=== PATIENT | male | born 1950 | race Caucasian/White ===

== ENCOUNTER 2017-05-30 09:26 | Inpatient (IN) | payer OTHER ==
[2017-05-30 09:30] VITALS: BMI 30.4
[2017-05-30] MEDS ORDERED: MORPHINE SULFATE INJ 4 MG ONE (10:01)
[2017-05-30] MEDS ORDERED: MORPHINE SULFATE INJ 4 MG IVP ONE (10:01)
--- NOTE | 2017-05-30 10:02 | RAD ---
HISTORY: Chest pain Study: Chest one view Comparison: None Findings: The trachea is midline. The cardiac silhouette is enlarged. No congestive heart failure is noted.. The lungs are clear without focal infiltrate or effusion. The bony thorax is unremarkable. IMPRESSION: 1. Mild cardiomegaly without congestive heart failure 2. Lungs clear Reported By:
--- NOTE | 2017-05-30 10:09 | DR.CP ---
HPI - Time Seen Time seen: 10:05 - PCP Primary Care Physician: dontrell - HPI Comment HPI Comment: GETTING WORSE. NO FEVER. HISTORY LIVER CIRRHOSIS. - Complaint Chief Complaint Doctor Comments: COUGH, CHEST PAIN, ABDOMINAL PAIN, SOB AND DIZZINESS SINCE YESTERDAY. Chief Complaint:: Patient stated "I started coughing yesterday and this morning I began to get dizzy and now my chest is killing me on the left side down my arm." Patient states he almost fell out his truck this morning from being dizzy - Reviewed Nurses Notes Review: Yes - Source History Provided: Patient - Mode of Arrival Mode of Arrival: Ambulatory - Timing Onset of Chief Complaint: 05/30/17 Came on: Suddenly Pain: Present Now - Duration Duration: Constant Duration: Hours - Location Location of Chest Pain: Chest Chest Pain Radiation Location: Left Arm, Left Shoulder - Context Onset: With light exertion Cardiac Risk Factors: None PE Risk Factors: None History of: None Prehospital Care: None - Quality Quality: Pressure like, Heavy - Severity Severity: Moderate - Modifying Factors Worsens: Nothing Impoves: Nothing - Associated Signs and Symptoms Associated Signs and Symptoms: Shortness of Breath, Nausea/Vomiting PMH - PMH Past Medical History: Yes Past Medical History: Diabetes, Hypertension, Liver Disease Past Surgical History: Yes Surgical History: Cholecystectomy - Family History History of Family Medical Conditions: Yes Family Medical History: Diabetes Mellitus, Cancer - Social History Does patient currently use any type of tobacco product: No Have you used tobacco products in the last 12 months: No Type of Tobacco Use: None Does any household member use tobacco: No Alcohol Use: DAILY Lives With: Alone Lives Where: Home - infectious screening In the last 2 months have you had wt loss of >10#?: NO Have you had fever, night sweats or hemotysis?: No Have you traveled outside the country in the last 6 months?: No Isolation: Standard ROS - Review of Systems Constitutional: Weakness, Fatigue, Loss of Appetite. negative: Chills, Fever Eyes: No Symptoms Reported. negative: Eye Pain, Discharge ENTM: No Symptoms Reported. negative: Ear Pain, Nose Discharge, Nose Congestion , Throat Pain Respiratoy: Non-Productive Cough, Short of Breath, Wheezing. negative: Productive Cough, Hemoptysis Cardiovascular: Chest Pain, Edema Gastrointestinal/Abdominal: Abdominal Pain, Nausea Genitourinary: No Symptoms Reported Neurological: Headache, Weakness, Dizziness Musculoskeletal: Joint Pain, Joint Swelling, Muscle Pain Integumentary: Change in Color Hematologic/Lymphatic: Easy Bleeding, Easy Bruising Endocrine: No Symptoms Reported All Other Systems: Reviewed and Negative PE - Vitals Vitals: Temperature 98.6 F Pulse Rate [Apical] 85 Pulse Rate 106 Respiratory Rate 19 Blood Pressure [Left Arm] 169/84 Blood Pressure 163/91 O2 Sat by Pulse Oximetry 97 - General Limitations: No Limitations General Appearance: Alert - Head Head Exam: Normal Inspection - Eyes Eye exam: Normal Appearance - ENT ENT Exam: Normal External Ear Exam - Chest Chest Inspection: Symmetric Chest Wall Rise - Respiratory Respiratory Exam: Respiratory Distress Respiratory Exam: Bilateral Wheezing, Bilateral Rhonchi, Upper Wheezing, Upper Rhonchi, Lower Wheezing, Lower Rhonchi - Cardiovascular Cardiovascular Exam: Regular Rate, Normal Rhythm, Normal Heart Sounds Pulse: Normal Edema: Normal - Abdominal Exam Abdominal Exam: Normal Bowel Sounds, Soft, Tenderness Abdominal Tenderness: Diffuse, Moderate - Extremities Extremities Exam: Edema - Back Back Exam: Normal Inspection - Neurologic Neurological Exam: Alert, Oriented X3 - Psychiatric Psychiatric Exam: Anxious - Skin Skin Exam: Erythema MDM - Differential Diagnosis Differential Diagnosis: Angina, CHF, Gastritis, Myocardial Infarction, Pericarditis, Pancreatitis, Pneumonia, Pneumothorax Course - Treatment Treatment: SEE ORDERS. - Consultation Consultation Comments: DISCUSS PATIENT WITH DR. PITT. HE WILL ADMIT PATIENT. - Education/Counseling Education/Counseling: Patient, Education Educated On: Diagnosis ROR - Labs Reviewed Laboratory Results Reviewed?: Yes Result Diagrams: 06/05/17 05:55 06/05/17 05:55 Laboratory: WBC 6.3 X10^3/uL (3.6-10.0) 05/30/17 09:45 RBC 4.50 X10^6/uL (4.7-6.0) L 05/30/17 09:45 Hgb 15.3 g/dL (13.5-18.0) 05/30/17 09:45 Hct 42.4 % (42.0-54.0) 05/30/17 09:45 MCV 94.3 fL (80.0-100.0) 05/30/17 09:45 MCH 34.0 pg (27.0-34.0) 05/30/17 09:45 MCHC 36.1 g/dL (33.0-35.0) H 05/30/17 09:45 RDW 14.7 % (11.6-16.5) 05/30/17 09:45 Plt Count 51 X10^3/uL (150.0-450.0) L 05/30/17 09:45 MPV 7.7 fL (7.4-11.0) 05/30/17 09:45 Neut % 63.1 % (42.0-75.0) 05/30/17 09:45 Lymph % 25.9 % (21.0-51.0) 05/30/17 09:45 Crane % 8.3 % (0.0-13.0) 05/30/17 09:45 Eos % 2.2 % (0.9-2.9) 05/30/17 09:45 Baso % 0.5 % (0.2-1.0) 05/30/17 09:45 Neut # 4.0 x10^3/uL (2.2-4.8) 05/30/17 09:45 Lymph # 1.6 X10^3/uL (1.3-2.9) 05/30/17 09:45 Crane # 0.5 x10^3/uL (0.3-0.8) 05/30/17 09:45 Eos # 0.1 x10^3/uL (0.0-0.2) 05/30/17 09:45 Baso # 0.0 X10^3/uL (0.0-0.1) 05/30/17 09:45 Absolute Nucleated RBC 0.1 /100WBC 05/30/17 09:45 INR Target Range - 05/30/17 09:45 INR 1.15 (0.8-1.3) 05/30/17 09:45 PTT 28.4 SECONDS (22.9-36.5) 05/30/17 09:45 PTT Comment - 05/30/17 09:45 Sodium 141 mmol/L (136-145) 05/30/17 09:45 Corrected Sodium 141 mmol/L (136-145) 05/30/17 09:45 Potassium 3.6 mmol/L (3.5-5.1) 05/30/17 09:45 Chloride 107 mmol/L (98-107) 05/30/17 09:45 Carbon Dioxide 26.2 mmol/L (21-32) 05/30/17 09:45 BUN 22 mg/dL (7-18) H 05/30/17 09:45 Creatinine 1.06 mg/dL (0.70-1.30) 05/30/17 09:45 Est GFR (MDRD) Af Amer > 60 (>60) 05/30/17 09:45 Est GFR (MDRD) Non-Af > 60 (>60) 05/30/17 09:45 Glucose 120 mg/dL (65-99) H 05/30/17 09:45 Calcium 8.8 mg/dL (8.5-10.1) 05/30/17 09:45 Corrected Calcium TNP 05/30/17 09:45 Magnesium 1.8 mg/dL (1.7-2.9) 05/30/17 09:45 Total Bilirubin 2.90 mg/dL (0.2-1.0) H 05/30/17 09:45 AST 28 Units/L (15-37) 05/30/17 09:45 ALT 27 Units/L (12-78) 05/30/17 09:45 Alkaline Phosphatase 104 Units/L (46-116) 05/30/17 09:45 Creatine Kinase 68 Units/L (39-308) 05/30/17 09:45 CK-MB (CK-2) < 1.0 ng/mL (0-4.0) 05/30/17 09:45 CK/CKMB % Calc 1.5 % (<4) 05/30/17 09:45 Troponin I 0.03 ng/mL (0-1.5) 05/30/17 09:45 Total Protein 7.2 g/dL (6.4-8.2) 05/30/17 09:45 Albumin 3.4 g/dL (3.4-5.0) 05/30/17 09:45 Globulin 3.8 g/dL (2.5-4.5) 05/30/17 09:45 Albumin/Globulin Ratio 0.9 Ratio (1.1-2.1) L 05/30/17 09:45 H. pylori IgG Antibody Negative (NEGATIVE) 05/30/17 09:45 - XRAY XRAY Interpreted by: Radiologist XRAY Findings: REPORT DISCUSS WITH PATIENT. - EKG Rhythm: NSR (EKG NOTED) - Diagnosis Discharge Problem: Chest pain Qualifiers: Chest pain type: unspecified Qualified Code(s): R07.9 - Chest pain, unspecified Abdominal pain Qualifiers: Abdominal location: generalized Qualified Code(s): R10.84 - Generalized abdominal pain Cirrhosis Qualifiers: Hepatic cirrhosis type: unspecified hepatic cirrhosis Ascites presence: without ascites Qualified Code(s): K74.60 - Unspecified cirrhosis of liver - Discharge Plan Disposition: 09 ADMITTED INPATIENT Condition: Stable - Follow ups/Referrals - Instructions
[2017-05-30 10:30] LABS: ALANINE AMINOTRANSFERASE 27 Units/L (12-78); ALBUMIN 3.4 g/dL (3.4-5.0); ALKALINE PHOSPHATASE 104 Units/L (46-116); ASPARTATE AMINO TRANSFERASE 28 Units/L (15-37); BLOOD UREA NITROGEN 22 mg/dL (7-18); CALCIUM 8.8 mg/dL (8.5-10.1); CARBON DIOXIDE 26.2 mmol/L (21-32); CHLORIDE 107 mmol/L (98-107); CKMB % 1.5 % (<4); COR NA(FOR HYPERGLY) 141 mmol/L (136-145); CREATINE KINASE 68 Units/L (39-308); CREATINE KINASE MB < 1.0 ng/mL (0-4.0); CREATININE 1.06 mg/dL (0.70-1.30); GLUCOSE 120 mg/dL (65-99); MAGNESIUM 1.8 mg/dL (1.7-2.9); SODIUM 141 mmol/L (136-145); TOTAL PROTEIN 7.2 g/dL (6.4-8.2); TROPONIN I 0.03 ng/mL (0-1.5); eGFR BLACK RACES > 60 (>60); eGFR NON BLACK RACES > 60 (>60)
[2017-05-30 10:31] LABS: BASOPHILS % (AUTO) 0.5 % (0.2-1.0); EOSINOPHILS # (AUTO) 0.1 x10^3/uL (0.0-0.2); EOSINOPHILS % (AUTO) 2.2 % (0.9-2.9); HEMATOCRIT 42.4 % (42.0-54.0); HEMOGLOBIN 15.3 g/dL (13.5-18.0); LYMPHOCYTES # (AUTO) 1.6 X10^3/uL (1.3-2.9); LYMPHOCYTES % (AUTO) 25.9 % (21.0-51.0); MEAN CORPUSCULAR HGB CONC 36.1 g/dL (33.0-35.0); MEAN CORPUSCULAR VOLUME 94.3 fL (80.0-100.0); MEAN PLATELET VOLUME 7.7 fL (7.4-11.0); MONOCYTES # (AUTO) 0.5 x10^3/uL (0.3-0.8); MONOCYTES % (AUTO) 8.3 % (0.0-13.0); NEUTROPHILS % (AUTO) 63.1 % (42.0-75.0); PLATELET COUNT 51 X10^3/uL (150.0-450.0); RED CELL DISTRIBUTION WIDTH 14.7 % (11.6-16.5); WHITE BLOOD COUNT 6.3 X10^3/uL (3.6-10.0)
--- NOTE | 2017-05-30 12:02 | CT ---
CT abdomen pelvis without contrast Indication: Severe chest and abdominal pain with reported history of cirrhosis. Technique: Helical CT images of the abdomen and pelvis were obtained without contrast. Reformatted i mages in the coronal and sagittal planes were also generated for review. Comparison: None Findings: The visualized lung bases are clear. No focal aggressive osseous lesions are identified. Within the limits of a noncontrast exam, the liver is cirrhotic in configuration with findings of po rtal venous hypertension, as evidenced by mild splenomegaly and extensive portosystemic collaterals, to include perisplenic, perigastric, lower esophageal and periumbilical varices with recannulized u mbilical vein. No definite focal hepatic lesion is identified, given limitations of noncontrast tech nique. There is no significant ascites. The pancreas, adrenals and kidneys demonstrate a grossly normal, noncontrast appearance. There is a small sliding-type hiatal hernia with mild thickening of the distal esophagus. The gastric fundus an d body also appear diffusely thickened, likely related to incomplete distention of the stomach. The remaining GI tract, including the appendix is within normal limits. There is mild calcification of the abdominal aorta. Urinary bladder and centrally calcified prostate appear normal. A small fat containing right inguinal hernia is noted. No free air, free fluid or ly mphadenopathy is identified. Impression: 1. Small hiatal hernia with mild thickening of the distal esophagus and proximal stomach, possibly r eflecting mild esophagitis/gastritis. Otherwise, no acute abnormality identified to explain patient' s abdominal pain. 2. Cirrhosis with findings of portal venous hypertension, as evidenced by splenomegaly and extensive portosystemic collaterals, including lower esophageal varices, as detailed above. Reported By:
[2017-05-30] MEDS ORDERED: ZOFRAN INJ 4 MG VIAL IVP PRN (13:02)
[2017-05-30 13:58] LABS: CKMB % 1.8 % (<4); CREATINE KINASE MB 1.1 ng/mL (0-4.0); TROPONIN I 0.02 ng/mL (0-1.5)
[2017-05-30] MEDS: NS 1000 ML 1,000 ML IV SCH (14:33)
[2017-05-30] MEDS ORDERED: NORCO 5/325 MG TAB PO PRN (16:56)
[2017-05-30] MEDS: MORPHINE SULFATE INJ 4 MG IVP PRN (18:17)
[2017-05-30 19:46] LABS: CKMB % 1.6 % (<4); CREATINE KINASE 61 Units/L (39-308); CREATINE KINASE MB < 1.0 ng/mL (0-4.0); TROPONIN I 0.03 ng/mL (0-1.5)
[2017-05-31] MEDS: MORPHINE SULFATE INJ 4 MG IVP PRN ×3 (00:30→16:49)
[2017-05-31 01:42] LABS: CKMB % 1.6 % (<4); CREATINE KINASE 62 Units/L (39-308); CREATINE KINASE MB < 1.0 ng/mL (0-4.0); TROPONIN I 0.03 ng/mL (0-1.5)
[2017-05-31 05:13] LABS: BASOPHILS % (AUTO) 0.6 % (0.2-1.0); EOSINOPHILS # (AUTO) 0.1 x10^3/uL (0.0-0.2); EOSINOPHILS % (AUTO) 2.9 % (0.9-2.9); HEMATOCRIT 39.2 % (42.0-54.0); HEMOGLOBIN 14.2 g/dL (13.5-18.0); LYMPHOCYTES # (AUTO) 1.8 X10^3/uL (1.3-2.9); LYMPHOCYTES % (AUTO) 35.5 % (21.0-51.0); MEAN CORPUSCULAR HEMOGLOBIN 34.2 pg (27.0-34.0); MEAN CORPUSCULAR HGB CONC 36.2 g/dL (33.0-35.0); MEAN CORPUSCULAR VOLUME 94.7 fL (80.0-100.0); MEAN PLATELET VOLUME 7.8 fL (7.4-11.0); MONOCYTES # (AUTO) 0.5 x10^3/uL (0.3-0.8); MONOCYTES % (AUTO) 9.4 % (0.0-13.0); NEUTROPHILS # (AUTO) 2.7 x10^3/uL (2.2-4.8); NEUTROPHILS % (AUTO) 51.6 % (42.0-75.0); PLATELET COUNT 49 X10^3/uL (150.0-450.0); RED BLOOD COUNT 4.13 X10^6/uL (4.7-6.0); RED CELL DISTRIBUTION WIDTH 14.7 % (11.6-16.5); WHITE BLOOD COUNT 5.1 X10^3/uL (3.6-10.0)
[2017-05-31 05:24] LABS: ALANINE AMINOTRANSFERASE 23 Units/L (12-78); ALBUMIN 3.1 g/dL (3.4-5.0); ALKALINE PHOSPHATASE 91 Units/L (46-116); ASPARTATE AMINO TRANSFERASE 24 Units/L (15-37); BLOOD UREA NITROGEN 22 mg/dL (7-18); CARBON DIOXIDE 26.4 mmol/L (21-32); CHLORIDE 107 mmol/L (98-107); CHOL/HDL RATIO 2.4 (0.0-5.0); CHOLESTEROL 131 mg/dL (0-200); COR CA(FOR HYPOALB) 8.7 mg/dL (8.5-10.1); COR NA(FOR HYPERGLY) 142 mmol/L (136-145); CREATININE 1.07 mg/dL (0.70-1.30); GLUCOSE 113 mg/dL (65-99); HDL CHOLESTEROL 55 mg/dL (40-60); SODIUM 142 mmol/L (136-145); TOTAL PROTEIN 6.4 g/dL (6.4-8.2); TRIGLYCERIDES 79 mg/dL (0-150); eGFR BLACK RACES > 60 (>60); eGFR NON BLACK RACES > 60 (>60)
[2017-05-31] MEDS ORDERED: POTASSIUM CHLORIDE LIQ 20 MEQ UDC PO PRN (05:31)
[2017-05-31] MEDS ORDERED: K-DUR TAB 20 MEQ PO PRN (05:31)
[2017-05-31] MEDS ORDERED: K-RIDER 10 MEQ/NS 100 ML 10 MEQ/100 ML BAG IV PRN (05:31)
[2017-05-31] MEDS ORDERED: K-LYTE EFFERVESCENT PO PRN (05:31)
[2017-05-31 05:51] LABS: PLATELET MORPHOLOGY COMMENT NORMAL (NORMAL)
[2017-05-31] MEDS ORDERED: PriLOSEC PO SCH (09:00)
[2017-05-31] MEDS: ALDACTONE TAB 25 MG PO SCH (10:18)
[2017-05-31] MEDS: INDERAL TAB 10 MG PO SCH ×2 (10:18→20:10)
[2017-05-31] MEDS: PROTONIX TAB 40 MG PO SCH (10:19)
[2017-05-31] MEDS: PEPCID 20 MG IV PREMIX* 20 MG/50 ML BAG IV SCH ×2 (10:19→20:10)
[2017-05-31 10:21] LABS: AMMONIA 60 umol/L (11-32)
[2017-05-31 10:33] LABS: CKMB % 1.7 % (<4); CREATINE KINASE 58 Units/L (39-308); TROPONIN I < 0.02 ng/mL (0-1.5)
--- NOTE | 2017-05-31 11:05 | DR.H&P ---
H&P - History & Physical for Day of: H&P Date: 05/30/17 - Chief Complaint Chief Complaint: COUGH, DIZZINESS, CHEST PAIN - Allergies Allergies/Adverse Reactions: Allergies Allergy/AdvReac Type Severity Reaction Status Date / Time No Known Drug Allergies Allergy Verified 05/30/17 09:37 - History of Present Illness History of Present Illness: IS A 67 YEAR OLD PATIENT WHO REPORTED TO THE ER WITH COMPLAINTS OF COUGHING UP YELLOW SPUTUM, DIZZINESS, AND LEFT SIDE CHEST AND ARM PAIN. PATIENT STATED THAT HE ALMOST PASSED OUT THIS MORNING, PRIOR TO COMING TO THE ER. HE STATED THAT HIS COUGH BEGAN YESTERDAY, BUT CHEST PAIN STARTED THIS MORNING. PATIENT IS ALSO NOTED WITH COMPLAINTS OF ABDOMINAL PAIN. ON ARRIVAL TO ER, VITALS WERE 98.6, 106, 18, 97, 163/91. LABS WERE OBTAINED. CBC WNL EXCEPT RBC 4.5. CMP WNL EXCEPT SODIUM 141, BUN 22, GLUCOSE 120. CALCIUM 8.0. TOTAL BILIRUBIN 2.90. CARDIAC ENZYMES WNL. AMMONIA LEVEL WAS 17. CHEST XRAY REPORTED MILD CARDIOMEGALY WITHOUT CHF. ABD/PELVIS CT WAS OBTAINED AND REPORTED A SMALL HIATAL HERNIA WITH MILD THICKENING OF THE DISTAL ESOPHAGUS AND PROXIMAL STOMACH, REFLECTING GASTRITIS/ESOPHAGITIS. 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 PATIENT REPORTS DAILY, HEAVY ALCOHOL USE. PATIENT HAS A HISTORY OF HTN, DYSLIPIDEMIA, AND DM, BUT ADMITS TO NOT BEING COMPLIANT WITH MEDICATIONS. WE ADMITTED PATIENT FOR FURTHER TREATMENT AND EVALUATION. WE STARTED PATIENT ON NS @ KVO, POTASSIUM PROTOCOL, ZOFRAN 4MG IV Q6H PRN, AND MORPHINE 4MG IV Q6H PRN. WE WILL RECHECK LABS AND FOLLOW UP WITH PATIENT IN AM. - Past Medical History Past Medical History: Arthritis, Depression, Diabetes, Dyslipidemia, GERD, Hypertension, Liver Disease Additional Medical History: CHRONIC BRONCHITIS, SLEEP APNEA - Past Surgical History Surgical History: Cholecystectomy - Family History Family Medical History: Diabetes Mellitus, [place], Coronary Artery Disease, Heart Failure, Sudden Cardiac , Hypertension - Social History Does patient currently use any type of tobacco product: No Have you used tobacco products in the last 12 months: No Type of Tobacco Use: None Does any household member use tobacco: No Alcohol Use: DAILY Drug Use: Prescription Drugs - Medications Home Medications: Hydrocodone/Acetaminophen [Hydrocodon-Acetaminophen 5-325] 1 tab PO QID PRN [History Confirmed 05/30/17] Omeprazole [Omeprazole] 1 tab PO DAILY 05/30/17 [History Confirmed 05/30/17] - Review of Systems Constitutional: Weakness. denies: No Symptoms Reported, See HPI, Fever, Chills , Sweats, Malaise, Other Eyes: No Symptoms Reported. denies: See HPI, Pain, Vision Change, Conjunctivae Inflammation, Eyelid Inflammation, Redness, Other ENT: No Symptoms Reported. denies: See HPI, Ear Pain, Ear Discharge, Nose Pain , Nose Discharge, Nose Congestion, Mouth Pain, Mouth Swelling, Throat Pain, Throat Swelling, Other Respiratory: See HPI, Cough, SOB with Excertion Cardiovascular: Chest Pain, See HPI, Light Headedness Gastrointestinal: Nausea, Abdominal Pain Genitourinary: No Symptoms Reported. denies: See HPI, Dysuria, Frequency, Incontinence, Hematuria, Retention, Other Musculoskeletal: No Symptoms Reported. denies: See HPI, Shoulder Pain, Arm Pain , Back Pain, Hand Pain, Leg Pain, Foot Pain, Neck Pain, Other Skin: No Symptoms Reported. denies: See HPI, Rash, Lesions, Jaundice, Bruising , Wound, Ecchymosis, Other Neurological: No Symptoms Reported. denies: See HPI, Weakness, Numbness, Incoordination, Change in Speech, Confusion, Seizures, Other - Physical Exam Vital Signs: Temperature 97.8 F Pulse Rate [Apical] 72 Respiratory Rate 18 Blood Pressure [Right Arm] 138/80 Blood Pressure [Left Arm] 192/91 O2 Sat by Pulse Oximetry 96 Oriented: Normal. negative: Time, Person, Place, Not Oriented, Unable to test, Other Eyes: Normal. negative: Blurred Vision, Diplopia, Discharge, Pain, Redness, Photophobia, Other Ear: Normal. negative: Right, Left, Swelling, Ecchymosis, Hemotypanum, Abrasion , Laceration Nose: Normal. negative: Injected, Discharge, Blood, Other Throat: Normal. negative: Tonsillar Hypertrophy, Red, Exudate, Dry, Other Respiratory: Rales Throughout Cardiovascular: Normal. negative: Tachycardia, Bradycardia, Irregular, S3, S4, Systolic, Diastolic, Murmur, Edema, Other : Normal. negative: Dysuria, Hematuria, Frequency, Discharge, Testicular Pain , Bleeding, , Other Auscultation: Bowel Sounds: Normal Palpation: Normal Tenderness: Diffuse Skin: Normal. negative: Decreased Turgur, Rash, Papular, Macular, Maculopapular , Vesicular, Pustular, Petechial, Red, Tender, Hot, Diaphoresis, Wound, Bruising , Ecchymosis, Other Musculoskeletal: Normal. negative: Right, Left, Shoulder, Clavicle, Arm, Elbow , Forearm, Wrist, Hand, Hip, Thigh, Knee, Leg, Ankle, Foot, Back:Thoracic, Back: Lumbar, Back:Midline, Back:Paraspinous, Pelvis, Swelling, Tender, Deformity, Pulse Deficit, Motor Deficit, Sensory Deficit, Instability, Crepitance Psychiatric: Normal Mood Description: Calm Affect: Normal - Assessment/Plan (1) Chest pain Qualifiers: Chest pain type: C Ischemic chest pain type: I Status: Acute Plan: CHECK CARDIAC ENZYMES AND EKG Q8H, CONTINUE MORPHINE IV PRN, CHECK H- PYLORI, MONITOR LABS. (2) Cirrhosis of liver Qualifiers: Hepatic cirrhosis type: unspecified hepatic cirrhosis Ascites presence: without ascites Qualified Code(s): K74.60 - Unspecified cirrhosis of liver Status: Acute Plan: START PROPRANOLOL 10MG BID, START ALDACTONE 25MG DAILY, OBTAIN EGD REPORT FROM . MONITOR LABS, CONTINUE TO MONITOR PATIENT. (3) Abdominal pain Qualifiers: Abdominal location: generalized Qualified Code(s): R10.84 - Generalized abdominal pain Status: Acute Plan: START PEPCID IV, START PROTONIX PO, CHECK H-PYLORI CONTINUE TO MONITOR
[2017-05-31] MEDS: NS 1000 ML 1,000 ML IV SCH (14:03)
[2017-05-31 18:20] LABS: CKMB % 1.6 % (<4); CREATINE KINASE 63 Units/L (39-308); CREATINE KINASE MB < 1.0 ng/mL (0-4.0); TROPONIN I 0.02 ng/mL (0-1.5)
--- NOTE | 2017-05-31 21:45 | PCM.PROG ---
Progress Note - Progress Note for Day of Date: 05/31/17 - Subjective Subjective: WAS ADMITTED FROM THE ER YESTERDAY WITH COMPLAINTS OF CHEST PAIN AND ABDOMINAL PAIN. HE IS ALERT AND ORIENTED, IN BED, ON MORNING ROUNDS. HE IS NOTED WITH COMPLAINTS OF DIFFUSE ABDOMINAL PAIN AND SHORTNESS OF BREATH. LUNGS WERE CLEAR ON AUSCULTATION. VITALS ON MORNING ROUNDS WERE 97.7-78-20-98%- 169/89. CBC WNL EXCEPT RBC 4.13, HCT 34.2, PLT 49. CMP WNL EXCEPT POTASSIUM 3.4 , BUN 22, GLUCOSE 113, CALCIUM 8.0, TOTAL BILI 2.60, AMMONIA 60, SERIAL CARDIAC ENZYMES AND EKG WNL. PATIENT STATED THAT HE HAD A EGD A FEW WEEKS AGO BY . WE WILL OBTAIN THE REPORT FROM HIS OFFICE. WE WILL CHECK AMMONIA LEVEL , H-PYLORI, SERIAL EKG AND CE Q8H. WE WILL START ALDACTONE 25MG DAILY, PROPRANOLOL 10MG BID, PEPCID IV, PROTONIX PO, AND OXYCODONE 5MG. WE WILL DISCONTINUE NORCO. WE WILL CONTINUE TO MONITOR AND FOLLOW UP WITH PATIENT IN AM. - Past Medical Family Social History Past Med/Fam/Surg Hx: No changes since H&P Allergies: Allergies No Known Drug Allergies Allergy (Verified 05/30/17 09:37) - Review of Systems ROS: No change since H&P - Vital Signs and I&O's Vital Signs: Temperature 98.7 F Pulse Rate [Apical] 64 Respiratory Rate 18 Blood Pressure [Right Arm] 124/67 Blood Pressure [Left Arm] 192/91 O2 Sat by Pulse Oximetry 97 Intake and Output: Intake & Output 05/29/17 05/30/17 05/31/17 06/01/17 11:59 11:59 11:59 11:59 Intake Total 2150 1560 Output Total 300 300 Balance 1850 1260 - Physical Exam Oriented: Normal. negative: Time, Person, Place, Not Oriented, Unable to test, Other Eyes: Normal. negative: Blurred Vision, Diplopia, Discharge, Pain, Redness, Photophobia, Other Ear: Normal. negative: Right, Left, Swelling, Ecchymosis, Hemotypanum, Abrasion , Laceration Nose: Normal. negative: Injected, Discharge, Blood, Other Throat: Normal. negative: Tonsillar Hypertrophy, Red, Exudate, Dry, Other Respiratory: Normal. negative: Right, Left, Generalized, Superior, Inferior, Diminished, Wheezes, Rales, Rhonchi, OTHER Cardiovascular: Normal, Other (CHEST PAIN). negative: Tachycardia, Bradycardia , Irregular, S3, S4, Systolic, Diastolic, Murmur, Edema : Normal. negative: Dysuria, Hematuria, Frequency, Discharge, Testicular Pain , Bleeding, , Other Auscultation: Bowel Sounds: Normal Palpation: Normal Tenderness: Diffuse Skin: Normal. negative: Decreased Turgur, Rash, Papular, Macular, Maculopapular , Vesicular, Pustular, Petechial, Red, Tender, Hot, Diaphoresis, Wound, Bruising , Ecchymosis, Other Musculoskeletal: Normal. negative: Right, Left, Shoulder, Clavicle, Arm, Elbow , Forearm, Wrist, Hand, Hip, Thigh, Knee, Leg, Ankle, Foot, Back:Thoracic, Back: Lumbar, Back:Midline, Back:Paraspinous, Pelvis, Swelling, Tender, Deformity, Pulse Deficit, Motor Deficit, Sensory Deficit, Instability, Crepitance Psychiatric: Normal Mood Description: Calm Affect: Normal Speech Pattern: Clear, Appropriate - Laboratory and Diagnostics Result Diagrams: 05/31/17 03:05 05/31/17 03:05 Labs: 05/31/17 10:15 Sputum - Expectorated Sputum - Final Laboratory WBC 5.1 X10^3/uL (3.6-10.0) 05/31/17 03:05 RBC 4.13 X10^6/uL (4.7-6.0) L 05/31/17 03:05 Hgb 14.2 g/dL (13.5-18.0) 05/31/17 03:05 Hct 39.2 % (42.0-54.0) L 05/31/17 03:05 MCV 94.7 fL (80.0-100.0) 05/31/17 03:05 MCH 34.2 pg (27.0-34.0) H 05/31/17 03:05 MCHC 36.2 g/dL (33.0-35.0) H 05/31/17 03:05 RDW 14.7 % (11.6-16.5) 05/31/17 03:05 Plt Count 49 X10^3/uL (150.0-450.0) L 05/31/17 03:05 Plt Count Comment Decreased (ADEQUATE) 05/31/17 03:05 MPV 7.8 fL (7.4-11.0) 05/31/17 03:05 Neut % 51.6 % (42.0-75.0) 05/31/17 03:05 Lymph % 35.5 % (21.0-51.0) 05/31/17 03:05 Placer % 9.4 % (0.0-13.0) 05/31/17 03:05 Eos % 2.9 % (0.9-2.9) 05/31/17 03:05 Baso % 0.6 % (0.2-1.0) 05/31/17 03:05 Neut # 2.7 x10^3/uL (2.2-4.8) 05/31/17 03:05 Lymph # 1.8 X10^3/uL (1.3-2.9) 05/31/17 03:05 Placer # 0.5 x10^3/uL (0.3-0.8) 05/31/17 03:05 Eos # 0.1 x10^3/uL (0.0-0.2) 05/31/17 03:05 Baso # 0.0 X10^3/uL (0.0-0.1) 05/31/17 03:05 Absolute Nucleated RBC 0.2 /100WBC 05/31/17 03:05 Plt Morphology Comment Normal (NORMAL) 05/31/17 03:05 RBC Morphology Normal (NORMAL) 05/31/17 03:05 INR Target Range - 05/31/17 09:50 INR 1.16 (0.8-1.3) 05/31/17 09:50 PTT 29.0 SECONDS (22.9-36.5) 05/31/17 09:50 PTT Comment - 05/31/17 09:50 Sodium 142 mmol/L (136-145) 05/31/17 03:05 Corrected Sodium 142 mmol/L (136-145) 05/31/17 03:05 Potassium 3.4 mmol/L (3.5-5.1) L 05/31/17 03:05 Chloride 107 mmol/L (98-107) 05/31/17 03:05 Carbon Dioxide 26.4 mmol/L (21-32) 05/31/17 03:05 BUN 22 mg/dL (7-18) H 05/31/17 03:05 Creatinine 1.07 mg/dL (0.70-1.30) 05/31/17 03:05 Est GFR (MDRD) Af Amer > 60 (>60) 05/31/17 03:05 Est GFR (MDRD) Non-Af > 60 (>60) 05/31/17 03:05 Glucose 113 mg/dL (65-99) H 05/31/17 03:05 Calcium 8.0 mg/dL (8.5-10.1) L 05/31/17 03:05 Corrected Calcium 8.7 mg/dL (8.5-10.1) 05/31/17 03:05 Magnesium 1.8 mg/dL (1.7-2.9) 05/30/17 09:45 Total Bilirubin 2.60 mg/dL (0.2-1.0) H 05/31/17 03:05 AST 24 Units/L (15-37) 05/31/17 03:05 ALT 23 Units/L (12-78) 05/31/17 03:05 Alkaline Phosphatase 91 Units/L (46-116) 05/31/17 03:05 Ammonia 60 umol/L (11-32) H 05/31/17 09:50 Creatine Kinase 63 Units/L (39-308) 05/31/17 17:50 CK-MB (CK-2) < 1.0 ng/mL (0-4.0) 05/31/17 17:50 CK/CKMB % Calc 1.6 % (<4) 05/31/17 17:50 Troponin I 0.02 ng/mL (0-1.5) 05/31/17 17:50 Total Protein 6.4 g/dL (6.4-8.2) 05/31/17 03:05 Albumin 3.1 g/dL (3.4-5.0) L 05/31/17 03:05 Globulin 3.3 g/dL (2.5-4.5) 05/31/17 03:05 Albumin/Globulin Ratio 0.9 Ratio (1.1-2.1) L 05/31/17 03:05 Triglycerides 79 mg/dL (0-150) 05/31/17 03:05 Cholesterol 131 mg/dL (0-200) 05/31/17 03:05 LDL Cholesterol, Calc 60 mg/dL (0-100) 05/31/17 03:05 HDL Cholesterol 55 mg/dL (40-60) 05/31/17 03:05 Cholesterol/HDL Ratio 2.4 (0.0-5.0) 05/31/17 03:05 H. pylori IgG Antibody Negative (NEGATIVE) 05/31/17 09:50 - Plan (1) Chest pain Status: Acute Qualifiers: Chest pain type: C Ischemic chest pain type: I Plan: CHECK CARDIAC ENZYMES AND EKG Q8H, CONTINUE MORPHINE IV PRN, CHECK H- PYLORI, MONITOR LABS. (2) Cirrhosis of liver Status: Acute Qualifiers: Hepatic cirrhosis type: unspecified hepatic cirrhosis Ascites presence: without ascites Qualified Code(s): K74.60 - Unspecified cirrhosis of liver Plan: START PROPRANOLOL 10MG BID, START ALDACTONE 25MG DAILY, OBTAIN EGD REPORT FROM . MONITOR LABS, CONTINUE TO MONITOR PATIENT. (3) Abdominal pain Status: Acute Qualifiers: Abdominal location: generalized Qualified Code(s): R10.84 - Generalized abdominal pain Plan: START PEPCID IV, START PROTONIX PO, CHECK H-PYLORI CONTINUE TO MONITOR
[2017-05-31] MEDS: ROXICODONE TAB 5 MG PO PRN (22:34)
[2017-06-01 01:52] LABS: CKMB % 1.3 % (<4); CREATINE KINASE 77 Units/L (39-308); CREATINE KINASE MB < 1.0 ng/mL (0-4.0); TROPONIN I < 0.02 ng/mL (0-1.5)
[2017-06-01] MEDS: NS 1000 ML 1,000 ML IV SCH ×2 (05:45→14:13)
[2017-06-01 06:42] LABS: ALANINE AMINOTRANSFERASE 23 Units/L (12-78); ALBUMIN 3.1 g/dL (3.4-5.0); ALKALINE PHOSPHATASE 79 Units/L (46-116); ASPARTATE AMINO TRANSFERASE 27 Units/L (15-37); BLOOD UREA NITROGEN 18 mg/dL (7-18); CALCIUM 8.3 mg/dL (8.5-10.1); CARBON DIOXIDE 27.4 mmol/L (21-32); CHLORIDE 107 mmol/L (98-107); CREATININE 0.95 mg/dL (0.70-1.30); SODIUM 140 mmol/L (136-145); TOTAL PROTEIN 6.6 g/dL (6.4-8.2); eGFR BLACK RACES > 60 (>60); eGFR NON BLACK RACES > 60 (>60)
[2017-06-01 06:55] LABS: GLUCOSE 109 mg/dL (65-99)
[2017-06-01 06:57] LABS: BASOPHILS % (AUTO) 0.5 % (0.2-1.0); EOSINOPHILS # (AUTO) 0.2 x10^3/uL (0.0-0.2); EOSINOPHILS % (AUTO) 2.6 % (0.9-2.9); HEMATOCRIT 39.8 % (42.0-54.0); HEMOGLOBIN 14.2 g/dL (13.5-18.0); LYMPHOCYTES # (AUTO) 2.2 X10^3/uL (1.3-2.9); LYMPHOCYTES % (AUTO) 29.7 % (21.0-51.0); MEAN CORPUSCULAR HEMOGLOBIN 33.4 pg (27.0-34.0); MEAN CORPUSCULAR HGB CONC 35.6 g/dL (33.0-35.0); MONOCYTES # (AUTO) 0.7 x10^3/uL (0.3-0.8); MONOCYTES % (AUTO) 8.9 % (0.0-13.0); NEUTROPHILS # (AUTO) 4.3 x10^3/uL (2.2-4.8); NEUTROPHILS % (AUTO) 58.3 % (42.0-75.0); PLATELET COUNT 59 X10^3/uL (150.0-450.0); RED BLOOD COUNT 4.24 X10^6/uL (4.7-6.0); RED CELL DISTRIBUTION WIDTH 14.7 % (11.6-16.5); WHITE BLOOD COUNT 7.3 X10^3/uL (3.6-10.0)
[2017-06-01] MEDS: PROTONIX TAB 40 MG PO SCH (08:52)
[2017-06-01] MEDS: PEPCID 20 MG IV PREMIX* 20 MG/50 ML BAG IV SCH ×2 (08:52→20:24)
[2017-06-01] MEDS: ALDACTONE TAB 25 MG PO SCH (08:52)
[2017-06-01] MEDS: INDERAL TAB 10 MG PO SCH ×2 (08:52→20:24)
[2017-06-01] MEDS ORDERED: VISTARIL PO PRN (09:35)
[2017-06-01] MEDS ORDERED: BUTT CREAM (COMPOUND) TOP PRN (09:35)
[2017-06-01] MEDS: LEVSIN/MAALOX/LIDOC VISC PO SCH ×4 (10:04→20:23)
--- NOTE | 2017-06-01 10:53 | PCM.PROG ---
Progress Note - Progress Note for Day of Date: 06/01/17 - Subjective Subjective: WAS ADMITTED FROM THE ER TWO DAYS AGO WITH COMPLAINTS OF CHEST PAIN AND ABDOMINAL PAIN. HE IS ALERT AND ORIENTED, IN BED, ON MORNING ROUNDS. HE IS NOTED WITH COMPLAINTS OF DIFFUSE ABDOMINAL PAIN AND SHORTNESS OF BREATH. HE ALSO COMPLAINS OF ITCHING TO HIS BACK AND LEGS. LUNGS WERE CLEAR ON AUSCULTATION. VITALS ON MORNING ROUNDS WERE 97.5, 74, 20, 94%, 136/63. CBC WNL EXCEPT RBC 4.24, HCT 39.8, PLT 59. CMP WNL EXCEPT POTASSIUM 3.6, GLUCOSE 109, CALCIUM 8.3, TOTAL BILI 3.30, AMMONIA 60, SERIAL CARDIAC ENZYMES AND EKG WNL. WE WILL CHECK BNP, CBC, CMP IN AM. WE WILL INCREASE PROPRANOLOL TO 20MG BID AND START GI COCKTAIN 15ML QID. WE WILL CONTINUE TO MONITOR AND FOLLOW UP WITH PATIENT IN AM. - Past Medical Family Social History Past Med/Fam/Surg Hx: No changes since H&P Allergies: Allergies No Known Drug Allergies Allergy (Verified 05/30/17 09:37) - Review of Systems ROS: No change since H&P - Vital Signs and I&O's Vital Signs: Temperature 97.5 F Pulse Rate [Apical] 74 Respiratory Rate 20 Blood Pressure [Right Arm] 136/63 Blood Pressure [Left Arm] 192/91 O2 Sat by Pulse Oximetry 94 Intake and Output: Intake & Output 05/29/17 05/30/17 05/31/17 06/01/17 11:59 11:59 11:59 11:59 Intake Total 2150 2135 Output Total 300 850 Balance 1850 1285 - Physical Exam Oriented: Normal. negative: Time, Person, Place, Not Oriented, Unable to test, Other Eyes: Normal. negative: Blurred Vision, Diplopia, Discharge, Pain, Redness, Photophobia, Other Ear: Normal. negative: Right, Left, Swelling, Ecchymosis, Hemotypanum, Abrasion , Laceration Nose: Normal. negative: Injected, Discharge, Blood, Other Throat: Normal. negative: Tonsillar Hypertrophy, Red, Exudate, Dry, Other Respiratory: Normal. negative: Right, Left, Generalized, Superior, Inferior, Diminished, Wheezes, Rales, Rhonchi, OTHER Cardiovascular: Normal, Other (CHEST PAIN). negative: Tachycardia, Bradycardia , Irregular, S3, S4, Systolic, Diastolic, Murmur, Edema : Normal. negative: Dysuria, Hematuria, Frequency, Discharge, Testicular Pain , Bleeding, , Other Auscultation: Bowel Sounds: Normal Tenderness: Diffuse Skin: Normal. negative: Decreased Turgur, Rash, Papular, Macular, Maculopapular , Vesicular, Pustular, Petechial, Red, Tender, Hot, Diaphoresis, Wound, Bruising , Ecchymosis, Other Musculoskeletal: Normal. negative: Right, Left, Shoulder, Clavicle, Arm, Elbow , Forearm, Wrist, Hand, Hip, Thigh, Knee, Leg, Ankle, Foot, Back:Thoracic, Back: Lumbar, Back:Midline, Back:Paraspinous, Pelvis, Swelling, Tender, Deformity, Pulse Deficit, Motor Deficit, Sensory Deficit, Instability, Crepitance Psychiatric: Normal Mood Description: Calm Affect: Normal Speech Pattern: Clear, Appropriate - Laboratory and Diagnostics Result Diagrams: 06/01/17 05:15 06/01/17 05:15 Labs: 05/31/17 10:15 Sputum - Expectorated Sputum Sputum Culture - Preliminary 05/31/17 10:15 Sputum - Expectorated Sputum - Final Laboratory WBC 7.3 X10^3/uL (3.6-10.0) 06/01/17 05:15 RBC 4.24 X10^6/uL (4.7-6.0) L 06/01/17 05:15 Hgb 14.2 g/dL (13.5-18.0) 06/01/17 05:15 Hct 39.8 % (42.0-54.0) L 06/01/17 05:15 MCV 94.0 fL (80.0-100.0) 06/01/17 05:15 MCH 33.4 pg (27.0-34.0) 06/01/17 05:15 MCHC 35.6 g/dL (33.0-35.0) H 06/01/17 05:15 RDW 14.7 % (11.6-16.5) 06/01/17 05:15 Plt Count 59 X10^3/uL (150.0-450.0) L 06/01/17 05:15 Plt Count Comment Decreased (ADEQUATE) 05/31/17 03:05 MPV 8.0 fL (7.4-11.0) 06/01/17 05:15 Neut % 58.3 % (42.0-75.0) 06/01/17 05:15 Lymph % 29.7 % (21.0-51.0) 06/01/17 05:15 [place] % 8.9 % (0.0-13.0) 06/01/17 05:15 Eos % 2.6 % (0.9-2.9) 06/01/17 05:15 Baso % 0.5 % (0.2-1.0) 06/01/17 05:15 Neut # 4.3 x10^3/uL (2.2-4.8) 06/01/17 05:15 Lymph # 2.2 X10^3/uL (1.3-2.9) 06/01/17 05:15 [place] # 0.7 x10^3/uL (0.3-0.8) 06/01/17 05:15 Eos # 0.2 x10^3/uL (0.0-0.2) 06/01/17 05:15 Baso # 0.0 X10^3/uL (0.0-0.1) 06/01/17 05:15 Absolute Nucleated RBC 0.1 /100WBC 06/01/17 05:15 Plt Morphology Comment Normal (NORMAL) 05/31/17 03:05 RBC Morphology Normal (NORMAL) 05/31/17 03:05 INR Target Range - 06/01/17 05:15 INR 1.22 (0.8-1.3) 06/01/17 05:15 PTT 30.5 SECONDS (22.9-36.5) 06/01/17 05:15 PTT Comment - 06/01/17 05:15 Sodium 140 mmol/L (136-145) 06/01/17 05:15 Corrected Sodium TNP 06/01/17 05:15 Potassium 3.6 mmol/L (3.5-5.1) 06/01/17 05:15 Chloride 107 mmol/L (98-107) 06/01/17 05:15 Carbon Dioxide 27.4 mmol/L (21-32) 06/01/17 05:15 BUN 18 mg/dL (7-18) 06/01/17 05:15 Creatinine 0.95 mg/dL (0.70-1.30) 06/01/17 05:15 Est GFR (MDRD) Af Amer > 60 (>60) 06/01/17 05:15 Est GFR (MDRD) Non-Af > 60 (>60) 06/01/17 05:15 Glucose 109 mg/dL (65-99) H 06/01/17 05:15 Calcium 8.3 mg/dL (8.5-10.1) L 06/01/17 05:15 Corrected Calcium 9.0 mg/dL (8.5-10.1) 06/01/17 05:15 Magnesium 1.8 mg/dL (1.7-2.9) 05/30/17 09:45 Total Bilirubin 3.30 mg/dL (0.2-1.0) H 06/01/17 05:15 AST 27 Units/L (15-37) 06/01/17 05:15 ALT 23 Units/L (12-78) 06/01/17 05:15 Alkaline Phosphatase 79 Units/L (46-116) 06/01/17 05:15 Ammonia 60 umol/L (11-32) H 05/31/17 09:50 Creatine Kinase 77 Units/L (39-308) 06/01/17 01:24 CK-MB (CK-2) < 1.0 ng/mL (0-4.0) 06/01/17 01:24 CK/CKMB % Calc 1.3 % (<4) 06/01/17 01:24 Troponin I < 0.02 ng/mL (0-1.5) 06/01/17 01:24 B-Natriuretic Peptide 79.1 pg/mL (0-79) H 06/01/17 05:15 Total Protein 6.6 g/dL (6.4-8.2) 06/01/17 05:15 Albumin 3.1 g/dL (3.4-5.0) L 06/01/17 05:15 Globulin 3.5 g/dL (2.5-4.5) 06/01/17 05:15 Albumin/Globulin Ratio 0.9 Ratio (1.1-2.1) L 06/01/17 05:15 Triglycerides 79 mg/dL (0-150) 05/31/17 03:05 Cholesterol 131 mg/dL (0-200) 05/31/17 03:05 LDL Cholesterol, Calc 60 mg/dL (0-100) 05/31/17 03:05 HDL Cholesterol 55 mg/dL (40-60) 05/31/17 03:05 Cholesterol/HDL Ratio 2.4 (0.0-5.0) 05/31/17 03:05 H. pylori IgG Antibody Negative (NEGATIVE) 05/31/17 09:50 - Plan (1) Chest pain Status: Acute Qualifiers: Chest pain type: C Ischemic chest pain type: I Plan: CHECK CARDIAC ENZYMES AND EKG Q8H, CONTINUE MORPHINE IV PRN, CHECK H- PYLORI, MONITOR LABS. (2) Cirrhosis of liver Status: Acute Qualifiers: Hepatic cirrhosis type: unspecified hepatic cirrhosis Ascites presence: without ascites Qualified Code(s): K74.60 - Unspecified cirrhosis of liver Plan: START PROPRANOLOL 10MG BID, START ALDACTONE 25MG DAILY, OBTAIN EGD REPORT FROM . MONITOR LABS, CONTINUE TO MONITOR PATIENT. (3) Abdominal pain Status: Acute Qualifiers: Abdominal location: generalized Qualified Code(s): R10.84 - Generalized abdominal pain Plan: START PEPCID IV, START PROTONIX PO, CHECK H-PYLORI CONTINUE TO MONITOR
[2017-06-01] MEDS: ROXICODONE TAB 5 MG PO PRN (12:36)
[2017-06-02 03:39] LABS: BASOPHILS % (AUTO) 0.6 % (0.2-1.0); EOSINOPHILS # (AUTO) 0.2 x10^3/uL (0.0-0.2); EOSINOPHILS % (AUTO) 2.4 % (0.9-2.9); HEMATOCRIT 38.4 % (42.0-54.0); HEMOGLOBIN 13.7 g/dL (13.5-18.0); LYMPHOCYTES # (AUTO) 2.5 X10^3/uL (1.3-2.9); LYMPHOCYTES % (AUTO) 36.6 % (21.0-51.0); MEAN CORPUSCULAR HEMOGLOBIN 33.9 pg (27.0-34.0); MEAN CORPUSCULAR HGB CONC 35.6 g/dL (33.0-35.0); MEAN CORPUSCULAR VOLUME 95.2 fL (80.0-100.0); MEAN PLATELET VOLUME 7.8 fL (7.4-11.0); MONOCYTES # (AUTO) 0.7 x10^3/uL (0.3-0.8); NEUTROPHILS # (AUTO) 3.3 x10^3/uL (2.2-4.8); NEUTROPHILS % (AUTO) 49.4 % (42.0-75.0); PLATELET COUNT 52 X10^3/uL (150.0-450.0); RED BLOOD COUNT 4.04 X10^6/uL (4.7-6.0); RED CELL DISTRIBUTION WIDTH 14.6 % (11.6-16.5); WHITE BLOOD COUNT 6.7 X10^3/uL (3.6-10.0)
[2017-06-02 03:42] LABS: AMMONIA 191 umol/L (11-32)
[2017-06-02 03:47] LABS: ALANINE AMINOTRANSFERASE 21 Units/L (12-78); ALBUMIN 2.9 g/dL (3.4-5.0); ALKALINE PHOSPHATASE 80 Units/L (46-116); ASPARTATE AMINO TRANSFERASE 25 Units/L (15-37); BLOOD UREA NITROGEN 15 mg/dL (7-18); CALCIUM 8.3 mg/dL (8.5-10.1); CARBON DIOXIDE 28.2 mmol/L (21-32); CHLORIDE 109 mmol/L (98-107); COR CA(FOR HYPOALB) 9.2 mg/dL (8.5-10.1); CREATININE 1.24 mg/dL (0.70-1.30); GLUCOSE 109 mg/dL (65-99); SODIUM 140 mmol/L (136-145); TOTAL PROTEIN 6.2 g/dL (6.4-8.2); eGFR BLACK RACES > 60 (>60); eGFR NON BLACK RACES > 60 (>60)
[2017-06-02 04:01] LABS: B-TYPE NATRIURETIC PEPTIDE 107 pg/mL (0-79)
[2017-06-02] MEDS: PROTONIX TAB 40 MG PO SCH (08:07)
[2017-06-02] MEDS: ALDACTONE TAB 25 MG PO SCH (08:07)
[2017-06-02] MEDS: PEPCID 20 MG IV PREMIX* 20 MG/50 ML BAG IV SCH ×2 (08:07→21:30)
[2017-06-02] MEDS: LEVSIN/MAALOX/LIDOC VISC PO SCH ×4 (08:07→21:29)
[2017-06-02] MEDS: INDERAL TAB 10 MG PO SCH ×2 (08:07→21:29)
--- NOTE | 2017-06-02 08:08 | RAD ---
HISTORY: Shortness of breath Study: Single-view chest Comparison: 05/30/17 Findings: The trachea is midline. The cardiac silhouette is stable. The lungs are clear without focal infilt rate or effusion. The bony thorax is unremarkable. IMPRESSION: 1. No acute cardiopulmonary disease. Reported By:
--- NOTE | 2017-06-02 09:32 | PCM.PROG ---
Progress Note - Progress Note for Day of Date: 06/02/17 - Subjective Subjective: WAS ADMITTED WITH COMPLAINTS OF CHEST PAIN AND ABDOMINAL PAIN. HE IS ALERT AND ORIENTED, IN BED, ON MORNING ROUNDS. HE CONTINUES WITH COMPLAINTS OF ABDOMINAL PAIN AND SHORTNESS OF BREATH THAT HE STATES HAS IMPROVED SOME SINCE YESTERDAY. HE ALSO COMPLAINS OF ITCHING TO HIS BACK AND LEGS. PATIENT IS NOTED WITH PATCHY AREAS OF REDNESS TO BACK, RIGHT AND LEFT FLANK, AND RIGHT LEG. LUNGS WERE CLEAR ON AUSCULTATION. VITALS ON MORNING ROUNDS WERE 98.4-70-20-95%-124/65. CBC WNL EXCEPT RBC 4.04, HCT 38.4, PLT 52. CMP WNL EXCEPT CHLORIDE 109, GLUCOSE 109, CALCIUM 8.3, TOTAL BILI 2.50, AMMONIA 191, BNP 107. CHEST XRAY CLEAR. PATIENT WILL BE STARTED ON LACTULOSE 30ML DAILY , MYCOLOG CREAM TID, AND DIFLUCAN 200MG IV DAILY. WE WILL CHECK BNP, CBC, CMP IN AM. WE WILL CONTINUE TO MONITOR AND FOLLOW UP WITH PATIENT IN AM. - Past Medical Family Social History Past Med/Fam/Surg Hx: No changes since H&P Allergies: Allergies No Known Drug Allergies Allergy (Verified 05/30/17 09:37) - Review of Systems ROS: No change since H&P - Vital Signs and I&O's Vital Signs: Temperature 98.4 F Pulse Rate [Apical] 70 Respiratory Rate 20 Blood Pressure [Right Arm] 124/65 O2 Sat by Pulse Oximetry 95 Intake and Output: Intake & Output 05/30/17 05/31/17 06/01/17 06/02/17 11:59 11:59 11:59 11:59 Intake Total 1077 Output Total 1475 Balance -398 - Physical Exam Oriented: Normal. negative: Time, Person, Place, Not Oriented, Unable to test, Other Eyes: Normal. negative: Blurred Vision, Diplopia, Discharge, Pain, Redness, Photophobia, Other Ear: Normal. negative: Right, Left, Swelling, Ecchymosis, Hemotypanum, Abrasion , Laceration Nose: Normal. negative: Injected, Discharge, Blood, Other Throat: Normal. negative: Tonsillar Hypertrophy, Red, Exudate, Dry, Other Respiratory: Normal. negative: Right, Left, Generalized, Superior, Inferior, Diminished, Wheezes, Rales, Rhonchi, OTHER Cardiovascular: Normal, Other (CHEST PAIN). negative: Tachycardia, Bradycardia , Irregular, S3, S4, Systolic, Diastolic, Murmur, Edema : Normal. negative: Dysuria, Hematuria, Frequency, Discharge, Testicular Pain , Bleeding, , Other Auscultation: Bowel Sounds: Normal Palpation: Normal Tenderness: Diffuse Skin: Normal. negative: Decreased Turgur, Rash, Papular, Macular, Maculopapular , Vesicular, Pustular, Petechial, Red, Tender, Hot, Diaphoresis, Wound, Bruising , Ecchymosis, Other Musculoskeletal: Normal. negative: Right, Left, Shoulder, Clavicle, Arm, Elbow , Forearm, Wrist, Hand, Hip, Thigh, Knee, Leg, Ankle, Foot, Back:Thoracic, Back: Lumbar, Back:Midline, Back:Paraspinous, Pelvis, Swelling, Tender, Deformity, Pulse Deficit, Motor Deficit, Sensory Deficit, Instability, Crepitance Psychiatric: Normal Mood Description: Calm Affect: Normal Speech Pattern: Clear, Appropriate - Laboratory and Diagnostics Result Diagrams: 06/02/17 03:24 06/02/17 03:24 Labs: Laboratory WBC 6.7 X10^3/uL (3.6-10.0) 06/02/17 03:24 RBC 4.04 X10^6/uL (4.7-6.0) L 06/02/17 03:24 Hgb 13.7 g/dL (13.5-18.0) 06/02/17 03:24 Hct 38.4 % (42.0-54.0) L 06/02/17 03:24 MCV 95.2 fL (80.0-100.0) 06/02/17 03:24 MCH 33.9 pg (27.0-34.0) 06/02/17 03:24 MCHC 35.6 g/dL (33.0-35.0) H 06/02/17 03:24 RDW 14.6 % (11.6-16.5) 06/02/17 03:24 Plt Count 52 X10^3/uL (150.0-450.0) L 06/02/17 03:24 Plt Count Comment Decreased (ADEQUATE) 05/31/17 03:05 MPV 7.8 fL (7.4-11.0) 06/02/17 03:24 Neut % 49.4 % (42.0-75.0) 06/02/17 03:24 Lymph % 36.6 % (21.0-51.0) 06/02/17 03:24 [place] % 11.0 % (0.0-13.0) 06/02/17 03:24 Eos % 2.4 % (0.9-2.9) 06/02/17 03:24 Baso % 0.6 % (0.2-1.0) 06/02/17 03:24 Neut # 3.3 x10^3/uL (2.2-4.8) 06/02/17 03:24 Lymph # 2.5 X10^3/uL (1.3-2.9) 06/02/17 03:24 [place] # 0.7 x10^3/uL (0.3-0.8) 06/02/17 03:24 Eos # 0.2 x10^3/uL (0.0-0.2) 06/02/17 03:24 Baso # 0.0 X10^3/uL (0.0-0.1) 06/02/17 03:24 Absolute Nucleated RBC 0.1 /100WBC 06/02/17 03:24 Plt Morphology Comment Normal (NORMAL) 05/31/17 03:05 RBC Morphology Normal (NORMAL) 05/31/17 03:05 INR Target Range - 06/02/17 03:24 INR 1.24 (0.8-1.3) 06/02/17 03:24 PTT 30.0 SECONDS (22.9-36.5) 06/02/17 03:24 PTT Comment - 06/02/17 03:24 Sodium 140 mmol/L (136-145) 06/02/17 03:24 Corrected Sodium TNP 06/02/17 03:24 Potassium 3.7 mmol/L (3.5-5.1) 06/02/17 03:24 Chloride 109 mmol/L (98-107) H 06/02/17 03:24 Carbon Dioxide 28.2 mmol/L (21-32) 06/02/17 03:24 BUN 15 mg/dL (7-18) 06/02/17 03:24 Creatinine 1.24 mg/dL (0.70-1.30) 06/02/17 03:24 Est GFR (MDRD) Af Amer > 60 (>60) 06/02/17 03:24 Est GFR (MDRD) Non-Af > 60 (>60) 06/02/17 03:24 Glucose 109 mg/dL (65-99) H 06/02/17 03:24 Calcium 8.3 mg/dL (8.5-10.1) L 06/02/17 03:24 Corrected Calcium 9.2 mg/dL (8.5-10.1) 06/02/17 03:24 Magnesium 1.8 mg/dL (1.7-2.9) 05/30/17 09:45 Total Bilirubin 2.50 mg/dL (0.2-1.0) H 06/02/17 03:24 AST 25 Units/L (15-37) 06/02/17 03:24 ALT 21 Units/L (12-78) 06/02/17 03:24 Alkaline Phosphatase 80 Units/L (46-116) 06/02/17 03:24 Ammonia 191 umol/L (11-32) H 06/02/17 03:24 Creatine Kinase 77 Units/L (39-308) 06/01/17 01:24 CK-MB (CK-2) < 1.0 ng/mL (0-4.0) 06/01/17 01:24 CK/CKMB % Calc 1.3 % (<4) 06/01/17 01:24 Troponin I < 0.02 ng/mL (0-1.5) 06/01/17 01:24 B-Natriuretic Peptide 107 pg/mL (0-79) H 06/02/17 03:24 Total Protein 6.2 g/dL (6.4-8.2) L 06/02/17 03:24 Albumin 2.9 g/dL (3.4-5.0) L 06/02/17 03:24 Globulin 3.3 g/dL (2.5-4.5) 06/02/17 03:24 Albumin/Globulin Ratio 0.9 Ratio (1.1-2.1) L 06/02/17 03:24 Triglycerides 79 mg/dL (0-150) 05/31/17 03:05 Cholesterol 131 mg/dL (0-200) 05/31/17 03:05 LDL Cholesterol, Calc 60 mg/dL (0-100) 05/31/17 03:05 HDL Cholesterol 55 mg/dL (40-60) 05/31/17 03:05 Cholesterol/HDL Ratio 2.4 (0.0-5.0) 05/31/17 03:05 H. pylori IgG Antibody Negative (NEGATIVE) 05/31/17 09:50 - Plan (1) Chest pain Status: Acute Qualifiers: Chest pain type: unspecified Ischemic chest pain type: I Qualified Code(s ): R07.9 - Chest pain, unspecified Plan: CHECK CARDIAC ENZYMES AND EKG Q8H, CONTINUE MORPHINE IV PRN, CHECK H- PYLORI, MONITOR LABS. (2) Cirrhosis of liver Status: Acute Qualifiers: Hepatic cirrhosis type: unspecified hepatic cirrhosis Ascites presence: without ascites Qualified Code(s): K74.60 - Unspecified cirrhosis of liver Plan: CONTINUE PROPRANOLOL 10MG BID, CONTINUE ALDACTONE 25MG DAILY. MONITOR LABS , CONTINUE TO MONITOR PATIENT. (3) Abdominal pain Status: Acute Qualifiers: Abdominal location: generalized Qualified Code(s): R10.84 - Generalized abdominal pain Plan: START PEPCID IV, START PROTONIX PO, CHECK H-PYLORI CONTINUE TO MONITOR (4) Ammonia dermatitis Status: Acute Plan: START LACTULOSE DAILY, MYCOLOG CREAM TID, DIFLUCAN IV DAILY, CONTINUE TO MONITOR
[2017-06-02] MEDS ORDERED: MYCOLOG-II CREAM TOP SCH (10:00)
[2017-06-02] MEDS: DIFLUCAN 200 MG IV PREMIX* 200 MG/100 ML BAG IV SCH (11:20)
[2017-06-02] MEDS ORDERED: MYCOLOG-II CREAM ONE (11:37)
[2017-06-02] MEDS: MYCOLOG-II CREAM TOP SCH ×2 (13:48→21:30)
[2017-06-02] MEDS: CHRONULAC PO SCH ×3 (13:48→21:29)
[2017-06-02] MEDS: NS 1000 ML 1,000 ML IV SCH (13:49)
[2017-06-03] MEDS: ROXICODONE TAB 5 MG PO PRN (01:00)
[2017-06-03 05:13] LABS: BASOPHILS % (AUTO) 0.6 % (0.2-1.0); EOSINOPHILS # (AUTO) 0.1 x10^3/uL (0.0-0.2); EOSINOPHILS % (AUTO) 2.2 % (0.9-2.9); HEMATOCRIT 40.3 % (42.0-54.0); HEMOGLOBIN 14.2 g/dL (13.5-18.0); LYMPHOCYTES # (AUTO) 2.4 X10^3/uL (1.3-2.9); LYMPHOCYTES % (AUTO) 36.1 % (21.0-51.0); MEAN CORPUSCULAR HEMOGLOBIN 33.5 pg (27.0-34.0); MEAN CORPUSCULAR HGB CONC 35.2 g/dL (33.0-35.0); MEAN CORPUSCULAR VOLUME 95.1 fL (80.0-100.0); MEAN PLATELET VOLUME 8.4 fL (7.4-11.0); MONOCYTES # (AUTO) 0.9 x10^3/uL (0.3-0.8); MONOCYTES % (AUTO) 13.5 % (0.0-13.0); NEUTROPHILS # (AUTO) 3.2 x10^3/uL (2.2-4.8); NEUTROPHILS % (AUTO) 47.6 % (42.0-75.0); PLATELET COUNT 60 X10^3/uL (150.0-450.0); RED BLOOD COUNT 4.24 X10^6/uL (4.7-6.0); RED CELL DISTRIBUTION WIDTH 14.7 % (11.6-16.5); WHITE BLOOD COUNT 6.8 X10^3/uL (3.6-10.0)
[2017-06-03 05:15] LABS: AMMONIA 92 umol/L (11-32)
[2017-06-03 05:17] LABS: ALANINE AMINOTRANSFERASE 27 Units/L (12-78); ALBUMIN 3.2 g/dL (3.4-5.0); ALKALINE PHOSPHATASE 98 Units/L (46-116); ASPARTATE AMINO TRANSFERASE 28 Units/L (15-37); BLOOD UREA NITROGEN 15 mg/dL (7-18); CALCIUM 8.4 mg/dL (8.5-10.1); CARBON DIOXIDE 26.5 mmol/L (21-32); CHLORIDE 109 mmol/L (98-107); CREATININE 1.29 mg/dL (0.70-1.30); GLUCOSE 110 mg/dL (65-99); SODIUM 142 mmol/L (136-145); TOTAL PROTEIN 6.7 g/dL (6.4-8.2); eGFR BLACK RACES > 60 (>60); eGFR NON BLACK RACES 59 (>60)
[2017-06-03] MEDS: MYCOLOG-II CREAM TOP SCH ×3 (05:33→21:23)
[2017-06-03] MEDS ORDERED: CHRONULAC PO SCH (09:00)
[2017-06-03] MEDS: LEVSIN/MAALOX/LIDOC VISC PO SCH ×4 (09:24→21:19)
[2017-06-03] MEDS: CHRONULAC PO SCH ×4 (09:24→21:18)
[2017-06-03] MEDS: ALDACTONE TAB 25 MG PO SCH (09:25)
[2017-06-03] MEDS: PEPCID 20 MG IV PREMIX* 20 MG/50 ML BAG IV SCH ×2 (09:25→21:21)
[2017-06-03] MEDS: PROTONIX TAB 40 MG PO SCH (09:25)
[2017-06-03] MEDS: INDERAL TAB 10 MG PO SCH ×2 (09:26→21:19)
[2017-06-03] MEDS: DIFLUCAN 200 MG IV PREMIX* 200 MG/100 ML BAG IV SCH (09:26)
--- NOTE | 2017-06-03 09:50 | PCM.PROG ---
Progress Note - Progress Note for Day of Date: 06/03/17 - Subjective Subjective: WAS ADMITTED WITH COMPLAINTS OF CHEST PAIN AND ABDOMINAL PAIN. HE IS ALERT AND ORIENTED, IN BED, ON MORNING ROUNDS. HE STATES THAT ITCHING TO BACK AND LEGS HAS IMPROVED SOME. LUNGS WERE CLEAR ON AUSCULTATION. VITALS ON MORNING ROUNDS WERE 97.6-67-20-98%-124/67. CBC WNL EXCEPT RBC 4.24, HCT 40.3, PLT 60. CMP WNL EXCEPT CHLORIDE 109, GLUCOSE 110, CALCIUM 8.4, TOTAL BILI 2.40, AMMONIA 92. WE WILL CONTINUE WITH CURRENT PLAN OF CARE. WE WILL CHECK HEPATITIS PANEL AND A CBC AND CMP IN AM. WE WILL CONTINUE TO MONITOR AND FOLLOW UP WITH PATIENT. - Past Medical Family Social History Past Med/Fam/Surg Hx: No changes since H&P Allergies: Allergies No Known Drug Allergies Allergy (Verified 05/30/17 09:37) - Review of Systems ROS: No change since H&P - Vital Signs and I&O's Vital Signs: Temperature 97.6 F Pulse Rate [Apical] 67 Respiratory Rate 20 Blood Pressure [Right Arm] 124/67 O2 Sat by Pulse Oximetry 98 Intake and Output: Intake & Output 05/31/17 06/01/17 06/02/17 06/03/17 11:59 11:59 11:59 11:59 Intake Total 1077 1750 Output Total 1475 2275 Balance -398 -525 - Physical Exam Oriented: Normal. negative: Time, Person, Place, Not Oriented, Unable to test, Other Eyes: Normal. negative: Blurred Vision, Diplopia, Discharge, Pain, Redness, Photophobia, Other Ear: Normal. negative: Right, Left, Swelling, Ecchymosis, Hemotypanum, Abrasion , Laceration Nose: Normal. negative: Injected, Discharge, Blood, Other Throat: Normal. negative: Tonsillar Hypertrophy, Red, Exudate, Dry, Other Respiratory: Normal. negative: Right, Left, Generalized, Superior, Inferior, Diminished, Wheezes, Rales, Rhonchi, OTHER Cardiovascular: Normal, Other (CHEST PAIN). negative: Tachycardia, Bradycardia , Irregular, S3, S4, Systolic, Diastolic, Murmur, Edema : Normal. negative: Dysuria, Hematuria, Frequency, Discharge, Testicular Pain , Bleeding, , Other Auscultation: Bowel Sounds: Normal Palpation: Normal Tenderness: Diffuse Skin: Rash. negative: Decreased Turgur, Papular, Macular, Maculopapular, Vesicular, Pustular, Petechial, Red, Tender, Hot, Diaphoresis, Wound, Bruising, Ecchymosis, Other Musculoskeletal: Normal. negative: Right, Left, Shoulder, Clavicle, Arm, Elbow , Forearm, Wrist, Hand, Hip, Thigh, Knee, Leg, Ankle, Foot, Back:Thoracic, Back: Lumbar, Back:Midline, Back:Paraspinous, Pelvis, Swelling, Tender, Deformity, Pulse Deficit, Motor Deficit, Sensory Deficit, Instability, Crepitance Psychiatric: Normal Mood Description: Calm Affect: Normal Speech Pattern: Clear, Appropriate - Laboratory and Diagnostics Result Diagrams: 06/03/17 04:30 06/03/17 04:30 Labs: Laboratory WBC 6.8 X10^3/uL (3.6-10.0) 06/03/17 04:30 RBC 4.24 X10^6/uL (4.7-6.0) L 06/03/17 04:30 Hgb 14.2 g/dL (13.5-18.0) 06/03/17 04:30 Hct 40.3 % (42.0-54.0) L 06/03/17 04:30 MCV 95.1 fL (80.0-100.0) 06/03/17 04:30 MCH 33.5 pg (27.0-34.0) 06/03/17 04:30 MCHC 35.2 g/dL (33.0-35.0) H 06/03/17 04:30 RDW 14.7 % (11.6-16.5) 06/03/17 04:30 Plt Count 60 X10^3/uL (150.0-450.0) L 06/03/17 04:30 Plt Count Comment Decreased (ADEQUATE) 05/31/17 03:05 MPV 8.4 fL (7.4-11.0) 06/03/17 04:30 Neut % 47.6 % (42.0-75.0) 06/03/17 04:30 Lymph % 36.1 % (21.0-51.0) 06/03/17 04:30 [place] % 13.5 % (0.0-13.0) H 06/03/17 04:30 Eos % 2.2 % (0.9-2.9) 06/03/17 04:30 Baso % 0.6 % (0.2-1.0) 06/03/17 04:30 Neut # 3.2 x10^3/uL (2.2-4.8) 06/03/17 04:30 Lymph # 2.4 X10^3/uL (1.3-2.9) 06/03/17 04:30 [place] # 0.9 x10^3/uL (0.3-0.8) H 06/03/17 04:30 Eos # 0.1 x10^3/uL (0.0-0.2) 06/03/17 04:30 Baso # 0.0 X10^3/uL (0.0-0.1) 06/03/17 04:30 Absolute Nucleated RBC 0.0 /100WBC 06/03/17 04:30 Plt Morphology Comment Normal (NORMAL) 05/31/17 03:05 RBC Morphology Normal (NORMAL) 05/31/17 03:05 INR Target Range - 06/03/17 04:30 INR 1.23 (0.8-1.3) 06/03/17 04:30 PTT 30.1 SECONDS (22.9-36.5) 06/03/17 04:30 PTT Comment - 06/03/17 04:30 Sodium 142 mmol/L (136-145) 06/03/17 04:30 Corrected Sodium TNP 06/03/17 04:30 Potassium 3.7 mmol/L (3.5-5.1) 06/03/17 04:30 Chloride 109 mmol/L (98-107) H 06/03/17 04:30 Carbon Dioxide 26.5 mmol/L (21-32) 06/03/17 04:30 BUN 15 mg/dL (7-18) 06/03/17 04:30 Creatinine 1.29 mg/dL (0.70-1.30) 06/03/17 04:30 Est GFR (MDRD) Af Amer > 60 (>60) 06/03/17 04:30 Est GFR (MDRD) Non-Af 59 (>60) 06/03/17 04:30 Glucose 110 mg/dL (65-99) H 06/03/17 04:30 Calcium 8.4 mg/dL (8.5-10.1) L 06/03/17 04:30 Corrected Calcium 9.0 mg/dL (8.5-10.1) 06/03/17 04:30 Magnesium 1.8 mg/dL (1.7-2.9) 05/30/17 09:45 Total Bilirubin 2.40 mg/dL (0.2-1.0) H 06/03/17 04:30 AST 28 Units/L (15-37) 06/03/17 04:30 ALT 27 Units/L (12-78) 06/03/17 04:30 Alkaline Phosphatase 98 Units/L (46-116) 06/03/17 04:30 Ammonia 92 umol/L (11-32) H 06/03/17 04:30 Creatine Kinase 77 Units/L (39-308) 06/01/17 01:24 CK-MB (CK-2) < 1.0 ng/mL (0-4.0) 06/01/17 01:24 CK/CKMB % Calc 1.3 % (<4) 06/01/17 01:24 Troponin I < 0.02 ng/mL (0-1.5) 06/01/17 01:24 B-Natriuretic Peptide 107 pg/mL (0-79) H 06/02/17 03:24 Total Protein 6.7 g/dL (6.4-8.2) 06/03/17 04:30 Albumin 3.2 g/dL (3.4-5.0) L 06/03/17 04:30 Globulin 3.5 g/dL (2.5-4.5) 06/03/17 04:30 Albumin/Globulin Ratio 0.9 Ratio (1.1-2.1) L 06/03/17 04:30 Triglycerides 79 mg/dL (0-150) 05/31/17 03:05 Cholesterol 131 mg/dL (0-200) 05/31/17 03:05 LDL Cholesterol, Calc 60 mg/dL (0-100) 05/31/17 03:05 HDL Cholesterol 55 mg/dL (40-60) 05/31/17 03:05 Cholesterol/HDL Ratio 2.4 (0.0-5.0) 05/31/17 03:05 H. pylori IgG Antibody Negative (NEGATIVE) 05/31/17 09:50 - Plan (1) Chest pain Status: Acute Qualifiers: Chest pain type: unspecified Ischemic chest pain type: I Qualified Code(s ): R07.9 - Chest pain, unspecified Plan: CONTINUE MORPHINE IV PRN, MONITOR LABS. (2) Cirrhosis of liver Status: Acute Qualifiers: Hepatic cirrhosis type: unspecified hepatic cirrhosis Ascites presence: without ascites Qualified Code(s): K74.60 - Unspecified cirrhosis of liver Plan: CONTINUE PROPRANOLOL 10MG BID, CONTINUE ALDACTONE 25MG DAILY. MONITOR LABS , CONTINUE TO MONITOR PATIENT. (3) Abdominal pain Status: Acute Qualifiers: Abdominal location: generalized Qualified Code(s): R10.84 - Generalized abdominal pain Plan: CONTINUE PEPCID IV, CONTINUE PROTONIX PO, CONTINUE TO MONITOR (4) Ammonia dermatitis Status: Acute Plan: CONTINUE LACTULOSE DAILY, MYCOLOG CREAM TID, DIFLUCAN IV DAILY, CONTINUE TO MONITOR
[2017-06-03] MEDS: NS 1000 ML 1,000 ML IV SCH (14:45)
[2017-06-04 05:15] LABS: AMMONIA 99 umol/L (11-32)
[2017-06-04 05:19] LABS: BASOPHILS % (AUTO) 0.6 % (0.2-1.0); EOSINOPHILS # (AUTO) 0.2 x10^3/uL (0.0-0.2); EOSINOPHILS % (AUTO) 2.2 % (0.9-2.9); HEMATOCRIT 39.8 % (42.0-54.0); HEMOGLOBIN 14.2 g/dL (13.5-18.0); LYMPHOCYTES # (AUTO) 2.4 X10^3/uL (1.3-2.9); LYMPHOCYTES % (AUTO) 34.2 % (21.0-51.0); MEAN CORPUSCULAR HEMOGLOBIN 33.5 pg (27.0-34.0); MEAN CORPUSCULAR HGB CONC 35.6 g/dL (33.0-35.0); MEAN PLATELET VOLUME 8.3 fL (7.4-11.0); MONOCYTES # (AUTO) 0.8 x10^3/uL (0.3-0.8); MONOCYTES % (AUTO) 11.7 % (0.0-13.0); NEUTROPHILS # (AUTO) 3.6 x10^3/uL (2.2-4.8); NEUTROPHILS % (AUTO) 51.3 % (42.0-75.0); PLATELET COUNT 57 X10^3/uL (150.0-450.0); RED BLOOD COUNT 4.24 X10^6/uL (4.7-6.0); RED CELL DISTRIBUTION WIDTH 14.5 % (11.6-16.5)
[2017-06-04 05:36] LABS: ALANINE AMINOTRANSFERASE 24 Units/L (12-78); ALBUMIN 3.1 g/dL (3.4-5.0); ALKALINE PHOSPHATASE 90 Units/L (46-116); ASPARTATE AMINO TRANSFERASE 25 Units/L (15-37); BLOOD UREA NITROGEN 13 mg/dL (7-18); CALCIUM 8.2 mg/dL (8.5-10.1); CARBON DIOXIDE 25.6 mmol/L (21-32); CHLORIDE 109 mmol/L (98-107); COR CA(FOR HYPOALB) 8.9 mg/dL (8.5-10.1); CREATININE 1.11 mg/dL (0.70-1.30); GLUCOSE 107 mg/dL (65-99); SODIUM 144 mmol/L (136-145); TOTAL PROTEIN 6.5 g/dL (6.4-8.2); eGFR BLACK RACES > 60 (>60); eGFR NON BLACK RACES > 60 (>60)
[2017-06-04] MEDS: MYCOLOG-II CREAM TOP SCH ×3 (06:03→23:59)
[2017-06-04] MEDS ORDERED: ROBITUSSIN DM PO PRN (07:27)
[2017-06-04] MEDS: CHRONULAC PO SCH ×5 (07:55→20:44)
[2017-06-04] MEDS: DIFLUCAN 200 MG IV PREMIX* 200 MG/100 ML BAG IV SCH ×2 (07:55→08:40)
[2017-06-04] MEDS: ALDACTONE TAB 25 MG PO SCH ×2 (07:56→08:39)
[2017-06-04] MEDS: INDERAL TAB 10 MG PO SCH ×3 (07:56→20:43)
[2017-06-04] MEDS: PEPCID 20 MG IV PREMIX* 20 MG/50 ML BAG IV SCH ×3 (07:56→20:45)
[2017-06-04] MEDS: PROTONIX TAB 40 MG PO SCH ×2 (07:56→08:40)
[2017-06-04] MEDS: LEVSIN/MAALOX/LIDOC VISC PO SCH ×5 (07:57→20:43)
[2017-06-04] MEDS: NS 1000 ML 1,000 ML IV SCH (14:46)
--- NOTE | 2017-06-04 17:57 | PCM.PROG ---
Progress Note - Progress Note for Day of Date: 06/04/17 - Subjective Subjective: WAS ADMITTED WITH COMPLAINTS OF CHEST PAIN AND ABDOMINAL PAIN. HE IS ALERT AND ORIENTED, IN BED, ON MORNING ROUNDS. PATIENT REPORTS WEAKNESS AND GENERALIZED ACHING. LUNGS WERE CLEAR ON AUSCULTATION. VITALS ON MORNING ROUNDS WERE 98.2-70-20-98%-113/66. CBC WNL REPORTS WBC 7.0, RBC 4.24, HCT 39.8, PLT 57. CMP REPORTS SODIUM 144, POTASSIUM 3.3, BUN 13, CREATININE 1.11 , CALCIUM 8.2, TOTAL BILI 2.60, AMMONIA 99. HEPATITIS PANEL PENDING. WE WILL INCREASE LACTULOSE TO 30MG QID. WE WILL RECHECK CBC AND CMP IN AM AND CONTINUE TO MONITOR AND FOLLOW UP WITH PATIENT. - Past Medical Family Social History Past Med/Fam/Surg Hx: No changes since H&P Allergies: Allergies No Known Drug Allergies Allergy (Verified 05/30/17 09:37) - Review of Systems ROS: No change since H&P - Vital Signs and I&O's Vital Signs: Temperature 98.2 F Pulse Rate [Right Radial] 70 Pulse Rate [Apical] 64 Respiratory Rate 20 Blood Pressure [Right Arm] 113/66 O2 Sat by Pulse Oximetry 98 Intake and Output: Intake & Output 06/02/17 06/03/17 06/04/17 06/05/17 11:59 11:59 11:59 11:59 Intake Total 1077 1750 1500 920 Output Total 1475 2275 950 Balance -398 -525 550 920 - Physical Exam Oriented: Normal. negative: Time, Person, Place, Not Oriented, Unable to test, Other Eyes: Normal. negative: Blurred Vision, Diplopia, Discharge, Pain, Redness, Photophobia, Other Ear: Normal. negative: Right, Left, Swelling, Ecchymosis, Hemotypanum, Abrasion , Laceration Nose: Normal. negative: Injected, Discharge, Blood, Other Throat: Normal. negative: Tonsillar Hypertrophy, Red, Exudate, Dry, Other Respiratory: Normal. negative: Right, Left, Generalized, Superior, Inferior, Diminished, Wheezes, Rales, Rhonchi, OTHER Cardiovascular: Normal, Other (CHEST PAIN). negative: Tachycardia, Bradycardia , Irregular, S3, S4, Systolic, Diastolic, Murmur, Edema : Normal. negative: Dysuria, Hematuria, Frequency, Discharge, Testicular Pain , Bleeding, , Other Auscultation: Bowel Sounds: Normal Palpation: Normal Tenderness: Diffuse Skin: Rash. negative: Decreased Turgur, Papular, Macular, Maculopapular, Vesicular, Pustular, Petechial, Red, Tender, Hot, Diaphoresis, Wound, Bruising, Ecchymosis, Other Musculoskeletal: Normal. negative: Right, Left, Shoulder, Clavicle, Arm, Elbow , Forearm, Wrist, Hand, Hip, Thigh, Knee, Leg, Ankle, Foot, Back:Thoracic, Back: Lumbar, Back:Midline, Back:Paraspinous, Pelvis, Swelling, Tender, Deformity, Pulse Deficit, Motor Deficit, Sensory Deficit, Instability, Crepitance Psychiatric: Normal Mood Description: Calm Affect: Normal Speech Pattern: Clear, Appropriate - Laboratory and Diagnostics Result Diagrams: 06/04/17 03:15 06/04/17 03:15 Labs: Laboratory WBC 7.0 X10^3/uL (3.6-10.0) 06/04/17 03:15 RBC 4.24 X10^6/uL (4.7-6.0) L 06/04/17 03:15 Hgb 14.2 g/dL (13.5-18.0) 06/04/17 03:15 Hct 39.8 % (42.0-54.0) L 06/04/17 03:15 MCV 94.0 fL (80.0-100.0) 06/04/17 03:15 MCH 33.5 pg (27.0-34.0) 06/04/17 03:15 MCHC 35.6 g/dL (33.0-35.0) H 06/04/17 03:15 RDW 14.5 % (11.6-16.5) 06/04/17 03:15 Plt Count 57 X10^3/uL (150.0-450.0) L 06/04/17 03:15 Plt Count Comment Decreased (ADEQUATE) 05/31/17 03:05 MPV 8.3 fL (7.4-11.0) 06/04/17 03:15 Neut % 51.3 % (42.0-75.0) 06/04/17 03:15 Lymph % 34.2 % (21.0-51.0) 06/04/17 03:15 Cavalier % 11.7 % (0.0-13.0) 06/04/17 03:15 Eos % 2.2 % (0.9-2.9) 06/04/17 03:15 Baso % 0.6 % (0.2-1.0) 06/04/17 03:15 Neut # 3.6 x10^3/uL (2.2-4.8) 06/04/17 03:15 Lymph # 2.4 X10^3/uL (1.3-2.9) 06/04/17 03:15 Cavalier # 0.8 x10^3/uL (0.3-0.8) 06/04/17 03:15 Eos # 0.2 x10^3/uL (0.0-0.2) 06/04/17 03:15 Baso # 0.0 X10^3/uL (0.0-0.1) 06/04/17 03:15 Absolute Nucleated RBC 0.3 /100WBC 06/04/17 03:15 Plt Morphology Comment Normal (NORMAL) 05/31/17 03:05 RBC Morphology Normal (NORMAL) 05/31/17 03:05 INR Target Range - 06/03/17 04:30 INR 1.23 (0.8-1.3) 06/03/17 04:30 PTT 30.1 SECONDS (22.9-36.5) 06/03/17 04:30 PTT Comment - 06/03/17 04:30 Sodium 144 mmol/L (136-145) 06/04/17 03:15 Corrected Sodium TNP 06/04/17 03:15 Potassium 3.3 mmol/L (3.5-5.1) L 06/04/17 03:15 Chloride 109 mmol/L (98-107) H 06/04/17 03:15 Carbon Dioxide 25.6 mmol/L (21-32) 06/04/17 03:15 BUN 13 mg/dL (7-18) 06/04/17 03:15 Creatinine 1.11 mg/dL (0.70-1.30) 06/04/17 03:15 Est GFR (MDRD) Af Amer > 60 (>60) 06/04/17 03:15 Est GFR (MDRD) Non-Af > 60 (>60) 06/04/17 03:15 Glucose 107 mg/dL (65-99) H 06/04/17 03:15 Calcium 8.2 mg/dL (8.5-10.1) L 06/04/17 03:15 Corrected Calcium 8.9 mg/dL (8.5-10.1) 06/04/17 03:15 Magnesium 1.8 mg/dL (1.7-2.9) 05/30/17 09:45 Total Bilirubin 2.60 mg/dL (0.2-1.0) H 06/04/17 03:15 AST 25 Units/L (15-37) 06/04/17 03:15 ALT 24 Units/L (12-78) 06/04/17 03:15 Alkaline Phosphatase 90 Units/L (46-116) 06/04/17 03:15 Ammonia 99 umol/L (11-32) H 06/04/17 03:15 Creatine Kinase 77 Units/L (39-308) 06/01/17 01:24 CK-MB (CK-2) < 1.0 ng/mL (0-4.0) 06/01/17 01:24 CK/CKMB % Calc 1.3 % (<4) 06/01/17 01:24 Troponin I < 0.02 ng/mL (0-1.5) 06/01/17 01:24 B-Natriuretic Peptide 107 pg/mL (0-79) H 06/02/17 03:24 Total Protein 6.5 g/dL (6.4-8.2) 06/04/17 03:15 Albumin 3.1 g/dL (3.4-5.0) L 06/04/17 03:15 Globulin 3.4 g/dL (2.5-4.5) 06/04/17 03:15 Albumin/Globulin Ratio 0.9 Ratio (1.1-2.1) L 06/04/17 03:15 Triglycerides 79 mg/dL (0-150) 05/31/17 03:05 Cholesterol 131 mg/dL (0-200) 05/31/17 03:05 LDL Cholesterol, Calc 60 mg/dL (0-100) 05/31/17 03:05 HDL Cholesterol 55 mg/dL (40-60) 05/31/17 03:05 Cholesterol/HDL Ratio 2.4 (0.0-5.0) 05/31/17 03:05 H. pylori IgG Antibody Negative (NEGATIVE) 05/31/17 09:50 - Plan (1) Chest pain Status: Acute Qualifiers: Chest pain type: unspecified Ischemic chest pain type: I Qualified Code(s ): R07.9 - Chest pain, unspecified Plan: CONTINUE MORPHINE IV PRN, MONITOR LABS. (2) Cirrhosis of liver Status: Acute Qualifiers: Hepatic cirrhosis type: unspecified hepatic cirrhosis Ascites presence: without ascites Qualified Code(s): K74.60 - Unspecified cirrhosis of liver Plan: CONTINUE PROPRANOLOL 10MG BID, CONTINUE ALDACTONE 25MG DAILY. MONITOR LABS , CONTINUE TO MONITOR PATIENT. (3) Abdominal pain Status: Acute Qualifiers: Abdominal location: generalized Qualified Code(s): R10.84 - Generalized abdominal pain Plan: CONTINUE PEPCID IV, CONTINUE PROTONIX PO, CONTINUE TO MONITOR (4) Ammonia dermatitis Status: Acute Plan: MYCOLOG CREAM TID, DIFLUCAN IV DAILY, CONTINUE TO MONITOR (5) Increased ammonia level Status: Acute Plan: LACTULOSE 30MG QID, CONTINUE TO MONITOR LABS
[2017-06-04 21:09] LABS: HEPATITIS A ANTIBODY IGM Negative (Negative)
[2017-06-05] MEDS: MYCOLOG-II CREAM TOP SCH (05:44)
[2017-06-05 06:29] LABS: AMMONIA 44 umol/L (11-32)
[2017-06-05 06:33] LABS: BASOPHILS % (AUTO) 0.5 % (0.2-1.0); EOSINOPHILS # (AUTO) 0.2 x10^3/uL (0.0-0.2); EOSINOPHILS % (AUTO) 2.1 % (0.9-2.9); HEMATOCRIT 41.7 % (42.0-54.0); LYMPHOCYTES # (AUTO) 2.7 X10^3/uL (1.3-2.9); LYMPHOCYTES % (AUTO) 34.7 % (21.0-51.0); MEAN CORPUSCULAR HEMOGLOBIN 33.7 pg (27.0-34.0); MEAN CORPUSCULAR HGB CONC 36.1 g/dL (33.0-35.0); MEAN CORPUSCULAR VOLUME 93.4 fL (80.0-100.0); MEAN PLATELET VOLUME 8.1 fL (7.4-11.0); MONOCYTES # (AUTO) 0.9 x10^3/uL (0.3-0.8); MONOCYTES % (AUTO) 11.7 % (0.0-13.0); PLATELET COUNT 70 X10^3/uL (150.0-450.0); RED BLOOD COUNT 4.46 X10^6/uL (4.7-6.0); RED CELL DISTRIBUTION WIDTH 14.5 % (11.6-16.5); WHITE BLOOD COUNT 7.9 X10^3/uL (3.6-10.0)
[2017-06-05 06:37] LABS: ALANINE AMINOTRANSFERASE 25 Units/L (12-78); ALBUMIN 3.3 g/dL (3.4-5.0); ALKALINE PHOSPHATASE 77 Units/L (46-116); ASPARTATE AMINO TRANSFERASE 31 Units/L (15-37); BLOOD UREA NITROGEN 13 mg/dL (7-18); CALCIUM 8.5 mg/dL (8.5-10.1); CARBON DIOXIDE 25.3 mmol/L (21-32); CHLORIDE 107 mmol/L (98-107); COR CA(FOR HYPOALB) 9.1 mg/dL (8.5-10.1); CREATININE 1.18 mg/dL (0.70-1.30); GLUCOSE 105 mg/dL (65-99); SODIUM 140 mmol/L (136-145); eGFR BLACK RACES > 60 (>60); eGFR NON BLACK RACES > 60 (>60)
[2017-06-05 07:15] LABS: PLATELET MORPHOLOGY COMMENT NORMAL (NORMAL)
[2017-06-05 07:43] LABS: HEPATITIS B CORE IGM Negative (Negative); HEPATITIS B SURFACE ANTIGEN Negative (Negative)
[2017-06-05] MEDS: CHRONULAC PO SCH (08:17)
[2017-06-05] MEDS: INDERAL TAB 10 MG PO SCH (08:18)
[2017-06-05] MEDS: PEPCID 20 MG IV PREMIX* 20 MG/50 ML BAG IV SCH (08:18)
[2017-06-05] MEDS: LEVSIN/MAALOX/LIDOC VISC PO SCH (08:18)
[2017-06-05] MEDS: PROTONIX TAB 40 MG PO SCH (08:18)
[2017-06-05] MEDS: ALDACTONE TAB 25 MG PO SCH (08:18)
[2017-06-05] MEDS: DIFLUCAN 200 MG IV PREMIX* 200 MG/100 ML BAG IV SCH (08:18)
[2017-06-05 12:36] VITALS: BP 176/74
--- NOTE | 2017-06-06 13:45 | DR.CARTERD ---
- Discharge Summary for: Discharge Summary for Date of:: 06/05/17 - Admission Date Date of Admission: 05/30/17 - Admission Diagnoses Admission Diagnosis: (1) Chest pain (2) Cirrhosis of liver (3) Abdominal pain - Discharge Diagnoses Discharge Diagnosis: (1) Chest pain (2) Cirrhosis of liver (3) Abdominal pain (4) Ammonia dermatitis (5) Increased ammonia level - Hospital Course Hospital Course: IS A 67 YEAR OLD PATIENT WHO REPORTED TO THE ER WITH COMPLAINTS OF COUGHING UP YELLOW SPUTUM, DIZZINESS, AND LEFT SIDE CHEST AND ARM PAIN. PATIENT STATED THAT HE ALMOST PASSED OUT THIS MORNING, PRIOR TO COMING TO THE ER. HE STATED THAT HIS COUGH BEGAN YESTERDAY, BUT CHEST PAIN STARTED THIS MORNING. PATIENT IS ALSO NOTED WITH COMPLAINTS OF ABDOMINAL PAIN. ON ARRIVAL TO ER, VITALS WERE 98.6, 106, 18, 97, 163/91. LABS WERE OBTAINED. CBC WNL EXCEPT RBC 4.5. CMP WNL EXCEPT SODIUM 141, BUN 22, GLUCOSE 120. CALCIUM 8.0. TOTAL BILIRUBIN 2.90. CARDIAC ENZYMES WNL. AMMONIA LEVEL WAS 17. CHEST XRAY REPORTED MILD CARDIOMEGALY WITHOUT CHF. ABD/PELVIS CT WAS OBTAINED AND REPORTED A SMALL HIATAL HERNIA WITH MILD THICKENING OF THE DISTAL ESOPHAGUS AND PROXIMAL STOMACH , REFLECTING GASTRITIS/ESOPHAGITIS. 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 PATIENT REPORTS DAILY, HEAVY ALCOHOL USE. PATIENT HAS A HISTORY OF HTN, DYSLIPIDEMIA, AND DM, BUT ADMITS TO NOT BEING COMPLIANT WITH MEDICATIONS. WE ADMITTED PATIENT FOR FURTHER TREATMENT AND EVALUATION. WE STARTED PATIENT ON NS @ KVO, POTASSIUM PROTOCOL, ZOFRAN 4MG IV Q6H PRN, AND MORPHINE 4MG IV Q6H PRN. OVER THE NEXT SEVERAL DAYS, PATIENT CONTINUES WITH ABDOMINAL PAIN AND GENERALIZED WEAKNESS AND ACHING. HIS AMMONIA LEVEL INCREASED TO 191. WE STARTED HIM ON LACTULOSE 15ML QID, ALDACTONE 25 MG DAILY, AND PROPRANOLOL 10MG BID. WITH THESE CHANGES, AMMONIA LEVEL DECREASED TO 92. WE CHANGED DOSE OF LACTULOSE TO 30ML QID AND INCREASED PROPRANOLOL TO 20MG BID. WE CHECKED A HAPATITIS PANEL , WHICH WAS NEGATIVE FOR HEPATITIS A, B, AND C. WE CONTINUED TO MONITOR CBC, CMP , AMMONIA, BNP, AND CHEST XRAYS. ALL CARDIAC ENZYMES AND EKGS WERE REPORTED WITHIN NORMAL LIMITS. HE COMPLAINED OF RASH TO BACK, BILATERAL FLANK, AND RIGHT THIGH. WE STARTED HIM ON DIFLUCAN IV AND MYCOLOG CREAM. ON THE DAY OF DISCHARGE PATIENT IS ALERT AND ORIENTED, AMBULATING IN ROOM. HE COMPLAINS OF WEAKNESS, BUT REPORTS FEELING MUCH BETTER THAN THE PREVIOUS DAYS OF STAY. LUNGS ARE CLEAR ON AUSCULTATION. BOWEL SOUNDS NORMAL IN ALL QUADRANTS. RASH WAS HARNESS INSPECTOR IN APPEARANCE. VITALS THIS MORNING ARE 98.3-67-18-97%-129/72. CBC WNL EXCEPT RBC 4.46, HCT 41.7. CMP WNL EXCEPT GLUCOSE 105, TOTAL BILI 3.50, AND ALBUMIN 3.3. AMMONIA HAS DECREASED FROM 99 TO 44. WE PLANNED FOR DISCHARGE. INSTRUCTIONS FOR MEDICATIONS AND FOLLOW UP WERE DISCUSSED WITH PATIENT. HE VERBALIZED UNDERSTANDING. WE WILL DISCHARGE HIM WITH A PRESCRIPTION FOR LACTULOSE 30ML QID, ALDACTONE 25MG DAILY, PROPRANOLOL 20MG BID, MYCOLOG CREAM, AND MUCINEX 1 TAB Q12H. PATIENT WAS DISCHARGED HOME IN STABLE CONDITION WITH INSTRUCTIONS TO FOLLOW UP WITH AND HIS PRIMARY CARE PHYSICIAN NEXT WEEK. - Discharge Medications Discharge Medications: Hydrocodone/Acetaminophen [Hydrocodon-Acetaminophen 5-325] 1 tab PO QID PRN [History] Omeprazole 1 tab PO DAILY 05/30/17 [History] Guaifenesin/Dextromet 600/30Mg [Mucinex Dm] 1 tab PO Q12H #20 tab 06/05/17 [Rx] Lactulose Syrup [CHRONULAC SYRUP *] 30 ml PO QID #1 bottle 06/05/17 [Rx] Nystatin/Triamcinolone [MYCOLOG-II CREAM *] 1 applic EXT BID #15 gm 06/05/17 [Rx ] Propranolol HCl 20 mg PO BID #60 tablet 06/05/17 [Rx] Spironolactone [ALDACTONE 25 MG *] 25 mg PO DAILY #30 tab 06/05/17 [Rx]
== END 2017-06-05 12:57 | disposition home or self-care (01) | DRG 313 ==
LOC: ER 09:44 → MED/SURG 13:40 → OBSVTOIN 06-01 09:00
PROVIDERS: ADMIT Internal Medicine; ATTEND Internal Medicine
DX: R07.89 Other chest pain (principal); E72.20 Disorder of urea cycle metabolism, unspecified; R10.84 Generalized abdominal pain; R94.31 Abnormal electrocardiogram [ECG] [EKG]; R06.02 Shortness of breath; R42 Dizziness and giddiness; I10 Essential (primary) hypertension; I51.7 Cardiomegaly; E78.2 Mixed hyperlipidemia; K21.9 Gastro-esophageal reflux disease without esophagitis; K74.69 Other cirrhosis of liver; L22 Diaper dermatitis
CPT/HCPCS: 36415; 71010; 74176; 80053; 80061; 80074; 82140; 82550; 82553; 83735; 83880; 84484; 85025; 85610; 85730; 86677; 87070; 87205; 93005; 93010; 94760; 96365; 96374; 99284; A4222; Q0177; S0028; G0378; J1450; J2270